=== PATIENT | female | born 1940 | race Caucasian/White ===

== ENCOUNTER 2018-06-30 20:30 | Inpatient (IN) ==
[2018-06-30] MEDS ORDERED: ASPIRIN PO ONE (20:45)
[2018-06-30 21:09] LABS: BASO# 0.03 X1000 (0.0-0.2); BASO% 0.2 % (0.0-0.8); EOS# 0.09 X1000 (0.0-0.7); EOS% 0.5 % (0.0-10.0); HEMATOCRIT 38.4 % (37.0-47.0); HEMOGLOBIN 12.9 g/dL (12.0-16.0); IMM GRAN# 0.04 X1000 (0.0-0.04); IMM GRAN% 0.2 % (0.0-0.5); LYMPH# 1.72 X1000 (1.2-3.4); LYMPH% 9.6 % (20.5-51.1); MCH 29.1 PG (27-31); MCHC 33.6 g/dL (33-37); MCV 86.7 FL (81-99); MONO% 7.2 % (1.7-9.3); MPV 8.1 FL (7.4-10.4); NEUT# 14.76 X1000 (1.4-6.5); NEUT% 82.3 % (42.2-75.2); PLT 409 X1000 (130-400); RBC 4.43 XMIL (4.2-5.4); WBC 17.94 X1000 (4.8-10.8)
[2018-06-30 21:19] LABS: INR 0.86; PROTIME 12.4 Seconds (11.0-16.0)
[2018-06-30 21:20] LABS: PTT 29.8 Seconds (22.3-41.8)
--- NOTE | 2018-06-30 21:24 | Diag Imaging Result Doc PS360 ---
EXAM: CHEST-2 VIEWS 06/30/2018 HISTORY: cp TECHNIQUE: PA and lateral chest COMMENT: There are rods in the thoracic and lumbar spine. There is some ill-defined opacity in the lingula. There are no previous studies available for comparison. IMPRESSION: Lingular pneumonia. Electronically signed by Adolfo Eagle 06/30/2018 9:22 PM
[2018-06-30 21:39] LABS: AGAP 12; ALB/GLOB RATIO 2.3; ALBUMIN 4.9 g/dL (3.5-5.0); ALKALINE PHOSPHATASE 145 U/L (32-104); BUN 20 mg/dL (8-22); CALCIUM 9.3 mg/dL (8.8-10.2); CHLORIDE 91 mmol/L (98-107); COSMO 270; CREATININE 0.8 mg/dL (0.5-0.9); ESTIMATED GFR > 60; GLUCOSE 143 mg/dL (70-104); GOT 37 U/L (10-30); GPT 41 U/L (10-36); POTASSIUM 3.3 mmol/L (3.5-5.1); SODIUM 132 mmol/L (136-145); TCO2 29 mmol/L (25-35); TOTAL BILIRUBIN 0.46 mg/dL (0.20-1.00)
[2018-06-30 21:42] LABS: CK PROFILE 440 U/L (24-173)
[2018-06-30 22:07] LABS: CK INDEX 1.4 (0.0-2.5); CK-MB 6.35 ng/mL (0.0-5.0)
--- NOTE | 2018-06-30 22:37 | PROVIDER DOCUMENTATION ---
This chart was entered by Clau Swanson Scribe, acting as scribe for Alan Peñaloza MD. HPI-General Adult - General Chief Complaint: Possible Sepsis-D Stated Complaint: PAIN IN NECK, BACK AND CHEST Time Seen by Provider: 06/30/18 21:24 Source: patient Allergies/Adverse Reactions: Patient Allergies Allergy/AdvReac Type Severity Reaction Status Date / Time No Known Allergies Allergy Verified 06/30/18 20:44 - History of Present Illness -Gen Adult Nature of Presenting Problems: Pt is 78/F presenting to ED w/ chest pain that goes through to back, neck pain and discomfort since 11:00. She was hallie her by her daughter. She sts that she has had some recent cough and runny nose as well. Location of Pain/Injury: reports: neck, chest, back Pain Radiation: reports: no radiation Quality of Pain: reports: aching Severity: reports: moderate Onset/Duration: reports: 4-6 hours ago Timing: reports: still present Context/Activities at Onset: reports: none Modifying Factors: improves with: nothing Associated Symptoms: reports: back/neck pain, chest pain. denies: fatigue, fever/chills, headaches, nausea, vomiting Similar Symptoms Previously?: No Recently seen or treated by another doctor?: No Review of Systems - Adult - REVIEW OF SYSTEMS - ADULT Constitutional: denies: chills, fever Eyes: reports: no symptoms reported Ears, Nose, Mouth & Throat: reports: no symptoms reported Cardiovascular: reports: chest pain. denies: edema Respiratory: reports: cough. denies: shortness of breath, wheezing Gastrointestinal: reports: no symptoms reported. denies: abdominal pain, diarrhea, vomiting Genitourinary: reports: no symptoms reported Musculoskeletal: reports: back pain Integumentary: reports: no symptoms reported Neurological: reports: no symptoms reported. denies: dizziness/vertigo, headache/migraines Psychiatric: reports: no symptoms reported Endocrine: reports: no symptoms reported Hematologic/Lymphatic: reports: no symptoms reported Allergic/Immunologic: reports: no symptoms reported All Other Systems: Reviewed and Negative Past History - Adult - PAST MEDICAL HISTORY-ADULT Review of Records: reports: Old Records Reviewed, Nursing Assessment Review, Medications Reviewed, Social history reviewed & non-contributory. - SOCIAL HISTORY Smoking: denies, non-smoker Substance Use: none/never Alcohol Use Frequency: never Living Situation: family Physical Exam-General - PHYSICAL EXAM-ADULT Initial Vital Signs Reviewed: Yes - CONSTITUTIONAL General Appearance: appears well, alert, no apparent distress - EYES Eyes: PERRL/EOMI - HEAD, EARS, NOSE, MOUTH & THROAT HENMT: normocephalic/atraumatic, moist mucous membranes, normal ENT inspection, TMs normal, pharynx normal - NECK Neck: non-tender, full range of motion, supple, normal inspection - RESPIRATORY Respiratory: chest non-tender, lungs clear, normal breath sounds - CARDIOVASCULAR Cardiovascular: regular rate, rhythm, no edema - GASTROINTESTINAL (ABDOMEN) Abdominal Exam: normal bowel sounds, non tender, soft - LYMPHATIC Lymphatic: no adenopathy - MUSCULOSKELETAL Back Exam: normal inspection Extremity: normal range of motion, non-tender, normal gait - SKIN Integumentary: normal color, normal turgor, warm/dry - NEUROLOGIC Neurologic: grossly normal - PSYCHIATRIC Psych/Mental Status: normal mood/affect, normal thought content, normal thought process, oriented x 3 Progress - PLAN OF CARE/RESULTS Progress/Plan/Lab Results: Vital Signs - 8 hr 06/30/18 20:41 Temperature 99.3 F Pulse Rate 86 Respiratory Rate 16 Blood Pressure 144/70 O2 Sat by Pulse Oximetry 93 L Laboratory Results - last 24 hr 06/30/18 06/30/18 06/30/18 20:56 20:56 20:56 WBC 17.94 H RBC 4.43 Hgb 12.9 Hct 38.4 MCV 86.7 MCH 29.1 MCHC 33.6 RDW Std Deviation 12.0 Plt Count 409 H MPV 8.1 Immature Gran % (Auto) 0.2 Neut % (Auto) 82.3 H Lymph % (Auto) 9.6 L Thomas % (Auto) 7.2 Eos % (Auto) 0.5 Baso % (Auto) 0.2 Immature Gran # (Auto) 0.04 Neut # (Auto) 14.76 H Lymph # (Auto) 1.72 Thomas # (Auto) 1.30 H Eos # (Auto) 0.09 Baso # (Auto) 0.03 PT INR PTT (Actin FS) Sodium 132 L Potassium 3.3 L Chloride 91 L Carbon Dioxide 29 Anion Gap 12 BUN 20 Creatinine 0.8 Estimated GFR/1.73 m2 > 60 BUN/Creatinine Ratio 25 Glucose 143 H Calculated Osmolality 270 Calcium 9.3 Total Bilirubin 0.46 AST 37 H ALT 41 H Alkaline Phosphatase 145 H Creatine Kinase 440 H Troponin T Idl-H-Zqodoqininj Pept 167 Total Protein 7.0 Albumin 4.9 Globulin 2.1 Albumin/Globulin Ratio 2.3 06/30/18 06/30/18 20:56 20:56 WBC RBC Hgb Hct MCV MCH MCHC RDW Std Deviation Plt Count MPV Immature Gran % (Auto) Neut % (Auto) Lymph % (Auto) Thomas % (Auto) Eos % (Auto) Baso % (Auto) Immature Gran # (Auto) Neut # (Auto) Lymph # (Auto) Thomas # (Auto) Eos # (Auto) Baso # (Auto) PT 12.4 INR 0.86 PTT (Actin FS) 29.8 Sodium Potassium Chloride Carbon Dioxide Anion Gap BUN Creatinine Estimated GFR/1.73 m2 BUN/Creatinine Ratio Glucose Calculated Osmolality Calcium Total Bilirubin AST ALT Alkaline Phosphatase Creatine Kinase Troponin T < 0.010 Bva-R-Htblfijvual Pept Total Protein Albumin Globulin Albumin/Globulin Ratio Orders Category Date Time Status Cardiac Monitoring DIRECTED Care 06/30/18 20:45 Active Cardiac Monitoring DIRECTED Care 06/30/18 21:45 Active IV Insertion ORDERED Care 06/30/18 21:45 Active Notify MD of + Sepsis Screen NOW Care 06/30/18 21:45 Active Notify Physician As Ordered Care 06/30/18 21:45 Active Oxygen Therapy- ED Nursing DIRECTED Care 06/30/18 20:45 Active CHEST-2 VIEWS [RAD] Stat Exams 06/30/18 20:45 Completed BLOOD CULTURE [BLDCUL] Stat Lab 06/30/18 21:45 Uncollected CBC WITH DIFF [HEME] Stat Lab 06/30/18 21:45 Uncollected CBC WITH ELECTRONIC DIFF [HEME] Stat Lab 06/30/18 20:56 Completed CK PROFILE [SP CHEM] Stat Lab 06/30/18 20:56 Results COMPREHENSIVE METABOLIC PANEL [CHEM] Stat Lab 06/30/18 20:56 Results LACTATE, PLASMA [CHEM] Lab 06/30/18 21:45 Uncollected LACTATE, PLASMA [CHEM] Lab 07/01/18 00:45 Uncollected LACTATE, PLASMA [CHEM] Lab 07/01/18 03:45 Uncollected PRO B-NATRIURETIC PEPTIDE Stat Lab 06/30/18 20:56 Completed PROTIME WITH INR [COAG] Stat Lab 06/30/18 20:56 Completed PTT [COAG] Stat Lab 06/30/18 20:56 Completed TROPONIN T Stat Lab 06/30/18 20:56 Completed URINALYSIS W/POSS RFLX CULT [URINALYSIS] Stat Lab 06/30/18 21:45 Uncollected Aspirin Med 06/30/18 20:45 Discontinued 325 mg PO NOW ONE CP/SOB/Palp >45 yrs of Age Stat Oth 06/30/18 20:45 Ordered Oxygen Device Stat Oth 06/30/18 21:45 Active Pulse Oximetry Stat Oth 06/30/18 21:45 Active EKG [EKG] Stat Ther 06/30/18 20:45 Ordered Result Diagrams: 06/30/18 20:56 06/30/18 20:56 - EKG 1 Time of EKG reading by physician:: 20:52 EKG Read and Signed by:: Alan Peñaloza EKG Interpretation (*Must complete 3 of following elements*): Abnormal (Normal sinus rhythm with sinus arrhythmia, Left axis deviation, Abnormal ECG) Rate: 96 Rhythm: normal sinus rhythm [place]: left QRS: normal MD Interval: normal ST Wave: normal - XRAY 1 XRAY: Bilateral XRAY Study: Chest Impression: Abnormal (COMMENT: There are rods in the thoracic and lumbar spine. There is some ill-defined opacity in the lingula. There are no previous studies available for comparison. IMPRESSION: Lingular pneumonia. Electronically signed by Adolfo Eagle 06/30/2018 9:22 PM [id number]) - CONSULTS/PCP/HOSPITALIST Notification #1 *Consult/PCP/Hospitalist*: Dr. Lares Time Discussed: 22:11 Reason/Comments: Dr. Lares agrees to admit pt to hospital Consult Disposition: Admit Departure - Departure Date of Disposition Decision: 06/30/18 Time of Disposition Decision: 22:37 DIAGNOSIS: Pneumonia Disposition: ADMITTED INPATIENT 09 Certified Medical Emergency: Emergent Condition: Fair Referrals and Follow-Ups: Megan Zavala MD [Primary Care Provider] - - Critical Care Note This patient required my direct & personal management of CC.: No Attestation - Physician/ DIVYA Attestation Patient care was provided by Advanced Practice Provider:: No The physician spent face to face time with patient:: Yes Advanced Practice Provider documentation review:: Supervising physician onsite and consulted in the evaluation and care of this patient. The physician did have a face to face encounter with the patient. This chart was documented by the indicated scribe, (Clau Swanson, Scribe) and accurately reflects the services I performed and decisions made by me, Alan Peñaloza MD, as attested by the provider's signature.
[2018-06-30 22:48] LABS: URINE SOURCE CLEAN CATCH
[2018-06-30 22:52] LABS: BILIRUBIN URINE NEGATIVE (NEGATIVE); BLOOD URINE SMALL (NEGATIVE); COLOR YELLOW; GLUCOSE URINE NEGATIVE (NEGATIVE); KETONE URINE NEGATIVE (NEGATIVE); LEUKOCYTES URINE SMALL (NEGATIVE); NITRITE URINE NEGATIVE (NEGATIVE); PROTEIN URINE NEGATIVE (NEGATIVE); SP GRAVITY URINE 1.006; TURBIDITY URINE CLEAR (CLEAR); UROBILINOGEN URINE NORMAL (NORMAL)
[2018-06-30 22:53] LABS: UR EPITHELIAL CELLS <10 /HPF (<10); URINE BACTERIA NEGATIVE /HPF; URINE WBC <10 /HPF (<10)
[2018-06-30] MEDS ORDERED: ZOFRAN IV ONE (22:59)
[2018-06-30] MEDS ORDERED: DILAUDID IV ONE (22:59)
[2018-06-30] MEDS ORDERED: NORCO-7.5 PO PRN (23:11)
[2018-06-30] MEDS ORDERED: KLOR-CON PO ONE (23:11)
[2018-07-01] MEDS ORDERED: VENTOLIN HFA INH PRN (04:30)
[2018-07-01] MEDS: NS 1,000 ML IV SCH (05:15)
[2018-07-01 05:20] LABS: BASO# 0.03 X1000 (0.0-0.2); BASO% 0.2 % (0.0-0.8); EOS# 0.05 X1000 (0.0-0.7); EOS% 0.3 % (0.0-10.0); HEMATOCRIT 37.4 % (37.0-47.0); HEMOGLOBIN 12.2 g/dL (12.0-16.0); IMM GRAN# 0.06 X1000 (0.0-0.04); IMM GRAN% 0.3 % (0.0-0.5); LYMPH# 1.87 X1000 (1.2-3.4); LYMPH% 10.3 % (20.5-51.1); MCH 28.8 PG (27-31); MCHC 32.6 g/dL (33-37); MCV 88.4 FL (81-99); MONO# 1.72 X1000 (0.11-0.59); MONO% 9.5 % (1.7-9.3); MPV 8.1 FL (7.4-10.4); NEUT# 14.36 X1000 (1.4-6.5); NEUT% 79.4 % (42.2-75.2); PLT 387 X1000 (130-400); RBC 4.23 XMIL (4.2-5.4); RDW 12.1 % (11.5-14.5); WBC 18.09 X1000 (4.8-10.8)
[2018-07-01] MEDS: ROCEPHIN 1 GM in NS 50 ML IV SCH (05:21)
[2018-07-01] MEDS: LOVENOX SUBQ SCH (05:21)
[2018-07-01 05:33] LABS: HEMOGLOBIN A1C 6.1 % (4.8-6.0)
[2018-07-01] MEDS ORDERED: DOXYCYCLINE 100 MG in NS 250 ML IV SCH (06:00)
[2018-07-01] MEDS: SYNTHROID PO SCH (06:17)
[2018-07-01] MEDS ORDERED: NORCO-7.5 PO PRN (06:18)
[2018-07-01 06:21] LABS: CREATININE 0.9 mg/dL (0.5-0.9); POTASSIUM 3.9 mmol/L (3.5-5.1)
[2018-07-01 06:37] LABS: CK INDEX 1.2 (0.0-2.5); CK-MB 4.71 ng/mL (0.0-5.0)
--- NOTE | 2018-07-01 06:57 | HISTORY AND PHYSICAL ---
CHIEF COMPLAINT: Pain in neck, back and chest. HISTORY OF PRESENT ILLNESS: This is an 78-year-old female who comes in with her daughter stating that she had a cough and runny nose after the past couple of days. She had onset of pain in her chest that radiated through to her back and into her neck since around 11 this afternoon. Nothing made it better, nothing made it worse. She complained of it being an aching or pressure. The patient does have a known history of COPD, hypertension, hypothyroidism, diabetes mellitus type 2 and GERD. In the emergency room, CKs were mildly elevated, troponins were within normal limit range. A chest x-ray was obtained which showed a lingular pneumonia. The patient also had an elevated white blood cell count at 17.94. She will be admitted to the medical floor for further evaluation and treatment. PAST MEDICAL HISTORY: 1. Hypertension. 2. Hyperlipidemia. 3. Chronic pain syndrome. 4. COPD. 5. Hypothyroidism. 6. Diabetes mellitus type 2. PREVIOUS SURGICAL HISTORY: 1. Two spinal fusions. 2. Right rotator cuff repair. 3. Kidney stone removal. 4. Bilateral cataract surgery. SOCIAL HISTORY: No tobacco, alcohol or illicit drugs. FAMILY HISTORY: Positive for diabetes and coronary artery disease as well as hypertension in first degree relatives. ALLERGIES: No known drug allergies. HOME MEDICATIONS: 1. Ultram 50 mg p.o. t.i.d. 2. Albuterol 2 puff inhalation q.4. 3. Aspirin 325 p.o. daily. 4. Baclofen 30 mg p.o. t.i.d. 5. Chlorthalidone 50 mg p.o. daily. 6. Duloxetine 60 mg p.o. daily. 7. Nexium 40 mg p.o. daily. 8. Ezetimibe 10 mg p.o. at bedtime. 9. Advair 500/50 one puff b.i.d. 10.Hydroxyzine 1 tablet p.o. t.i.d. 25 mg for itch. 11.Synthroid 25 mcg p.o. daily. 12.Metformin 1000 mg b.i.d. 13.Mirabegron 50 mg p.o. at bedtime. 14.Oxazepam 20 mg p.o. b.i.d. 15.Ropinirole 1 mg p.o. at bedtime. 16.Rosuvastatin 20 mg p.o. at bedtime. REVIEW OF SYSTEMS: Fourteen point review of systems conducted with the patient and pertinent positives listed above in the HPI. All other systems reviewed and found to be negative. PHYSICAL EXAMINATION: VITAL SIGNS: Temperature 99.3 degrees, pulse 98, respirations 18, blood pressure 139/77, oxygen saturation 94% on room air. GENERAL: 78-year-old female lying in the stretcher, answers all questions appropriately, is alert and oriented x3 and in no acute distress. HEENT: Head is atraumatic, normocephalic. Pupils are equal, round and reactive to light. Extraocular eye movements intact. Sclerae nonicteric. Conjunctivae pale. Oral mucosa is dry. NECK: Supple. No JVD. No thyromegaly. Trachea is midline. No cervical lymphadenopathy. CARDIAC: S1, S2 appreciated. No murmurs, gallops, rubs. LUNGS: Decreased bilaterally. No rhonchi, wheezes, rales. Symmetrical rise and fall of respirations. ABDOMEN: Soft, nondistended, nontender. Bowel sounds present in all 4 quadrants. Normoactive. No pulsatile mass or organomegaly. EXTREMITIES: No cyanosis, clubbing or edema. 2+ pedal pulses bilaterally. GENITOURINARY: No bladder distention. Patient voids otherwise. NEUROLOGICAL: Alert and oriented x3. Cranial nerves 2-12 grossly intact. DIAGNOSTIC DATA: Chest x-ray showed a lingular pneumonia. LABORATORY DATA: WBC 17.94, hemoglobin 12.9, hematocrit 38.4, platelet count 409,000. Coags within normal limits. Sodium 132, potassium 3.3, chloride 91, carbon dioxide 29 , BUN 20, creatinine 0.8, glucose 143. CK was 440, troponin less than 0.010. Urine unremarkable. ASSESSMENT AND PLAN: 1. Lingular pneumonia. We will treat with IV doxycycline and Rocephin. Check a sputum culture and blood cultures. Patient is having a fairly significant cough. We will give Tessalon Perles. We will start [address] as needed for pain which is also an antitussive. 2. Hyperlipidemia. Continue home medication. 3. Diabetes mellitus type 2 with hyperglycemia. Continue metformin. Check a hemoglobin A1c. 4. Hypokalemia. We will treat with 40 mEq of potassium, recheck in a.m. 5. Mild fluid volume depletion. We will start normal saline. Continue to monitor labs. Further recommendations per patient's clinical course. Dictated by EAMON Mason for Will Lares MD I have performed a face to face diagnostic evaluation. Lab/ Xrays - reviewed, Exam- Chest- rhonchi A/P- Pneumonia- Admit, IV ABX Dr. Lares cc: EAMON Mason MD [facility] [place] [facility]
[2018-07-01] MEDS: SERAX PO SCH ×2 (08:24→20:20)
[2018-07-01] MEDS: HYGROTON PO SCH (08:24)
[2018-07-01] MEDS: GLUCOPHAGE PO SCH ×2 (08:24→17:44)
[2018-07-01] MEDS: ASPIRIN PO SCH (08:25)
[2018-07-01] MEDS: CYMBALTA PO SCH (08:26)
[2018-07-01] MEDS ORDERED: GLUCOPHAGE PO SCH (09:00)
[2018-07-01] MEDS ORDERED: MIRABEGRON 50 MG PO SCH (09:00)
[2018-07-01] MEDS ORDERED: LIORESAL PO SCH (09:00)
[2018-07-01] MEDS ORDERED: NEXIUM PO SCH (09:00)
[2018-07-01] MEDS ORDERED: SYNTHROID PO SCH (09:00)
[2018-07-01] MEDS ORDERED: ZETIA PO SCH (09:00)
[2018-07-01] MEDS ORDERED: SERAX PO SCH (09:00)
[2018-07-01] MEDS ORDERED: CYMBALTA PO SCH (09:00)
[2018-07-01] MEDS ORDERED: CHLORTHALIDONE 50 MG PO SCH (09:00)
[2018-07-01] MEDS ORDERED: CRESTOR PO SCH (09:00)
[2018-07-01] MEDS ORDERED: ASPIRIN PO SCH (09:00)
[2018-07-01] MEDS: ADVAIR 500/50 DISKUS INH SCH ×2 (09:30→20:00)
[2018-07-01] MEDS ORDERED: DUONEB (A & A) INH PRN (10:55)
[2018-07-01] MEDS: DUONEB (A & A) INH SCH ×4 (11:59→23:15)
[2018-07-01] MEDS: NORCO-7.5 PO PRN ×3 (13:53→21:30)
[2018-07-01] MEDS: LEVAQUIN 750 MG/D5W 750 MG/150 ML IVPB IV SCH (14:45)
[2018-07-01 14:51] LABS: CK INDEX 1.6 (0.0-2.5); CK-MB 4.59 ng/mL (0.0-5.0)
[2018-07-01] MEDS: LIORESAL PO SCH ×3 (15:27→17:44)
[2018-07-01] MEDS: CRESTOR PO SCH (20:19)
[2018-07-01] MEDS: NEXIUM PO SCH (20:19)
[2018-07-01] MEDS: MYRBETRIQ E.R. PO SCH (20:20)
[2018-07-01] MEDS: ZETIA PO SCH (20:20)
[2018-07-01] MEDS: REQUIP PO SCH (20:20)
[2018-07-01 21:01] LABS: CK-MB 5.41 ng/mL (0.0-5.0)
--- NOTE | 2018-07-01 21:27 | Diag Imaging Result Doc PS360 ---
EXAM: CT THORAX W/O CONTRAST 07/01/2018 HISTORY: pna TECHNIQUE: This exam was performed using automated exposure control, adjustment of mA or kV according to patient size, and/or use of iterative reconstruction technique. COMMENT: There is some platelike atelectatic opacities in the right lower lobe. There is denser consolidation in the lingula and left lower lobe posteriorly. There is a pericardial effusion which measures a centimeter anteriorly. There is a small left pleural effusion. There are nonspecific aorticopulmonary window and paratracheal nodes. There is a hiatal hernia. There are postsurgical changes in the thoracic spine. IMPRESSION: Lingular and left lower lobe pneumonia. Electronically signed by Adolfo Eagle 07/01/2018 9:25 PM
[2018-07-01] MEDS: ATARAX PO PRN (21:30)
[2018-07-02] MEDS: NORCO-7.5 PO PRN ×3 (01:43→09:24)
[2018-07-02] MEDS: DUONEB (A & A) INH SCH ×6 (04:02→23:45)
[2018-07-02] MEDS: SYNTHROID PO SCH ×2 (05:31→06:17)
[2018-07-02] MEDS: LOVENOX SUBQ SCH (05:31)
[2018-07-02] MEDS: ROCEPHIN 1 GM in NS 50 ML IV SCH (05:31)
[2018-07-02] MEDS: ADVAIR 500/50 DISKUS INH SCH ×2 (07:53→19:40)
[2018-07-02] MEDS: GLUCOPHAGE PO SCH ×2 (09:23→18:10)
[2018-07-02] MEDS: CYMBALTA PO SCH (09:23)
[2018-07-02] MEDS: LIORESAL PO SCH ×3 (09:23→17:00)
[2018-07-02] MEDS: SERAX PO SCH ×2 (09:23→21:04)
[2018-07-02] MEDS: ASPIRIN PO SCH (09:23)
[2018-07-02] MEDS: HYGROTON PO SCH (09:24)
[2018-07-02] MEDS: LEVAQUIN 750 MG/D5W 750 MG/150 ML IVPB IV SCH (10:59)
[2018-07-02] MEDS: NS 1,000 ML IV SCH (10:59)
--- NOTE | 2018-07-02 12:45 | PROGRESS NOTE ---
DATE: 07/02/2018 SUBJECTIVE: The patient reports continuing to have left pleuritic chest pain and cough. She requests pain medication dose to be increased today. OBJECTIVE: Vital Signs: Temperature 97.9 degrees, heart rate 81, respiratory rate 16, blood pressure 119/52, O2 saturation 97% on 2 L nasal cannula. General examination: This is an 78- year-old female lying in bed, in no acute distress. HEENT: Head is normocephalic, atraumatic. Neck: No JVD noted. No carotid bruits. No lymphadenopathy. No thyromegaly. Cardiovascular: S1, S2 heard. No murmurs, gallops, or rubs. Regular rate and rhythm. Respiratory: Coarse breath sounds in both pulmonary bases as well as wheezing. Patient is not using any accessory muscles or having work of breathing. Abdomen: Soft. Nontender to palpation. Bowel sounds present. No organomegaly. Extremities: No clubbing, cyanosis, or edema. Peripheral pulses present in both legs. Neurological: The patient is alert and oriented x3. Moves 4 extremities. LABORATORY DATA: White cell count 18.09, hemoglobin 12.2, hematocrit 37.4, platelets 387,000. BMP remarkable for creatinine 0.9, sodium 132. The CT of the chest shows lingular and left lower lobe pneumonia. There is also postsurgical changes in the thoracic spine. ASSESSMENT AND PLAN: 1. Acute respiratory failure. Patient is requiring 2 to 3 L of oxygen by nasal cannula. We will continue with the same management. 2. Left lower lobe on the lingular pneumonia. Patient is on ceftriaxone and levofloxacin. She continues to have pretty much cough and requiring oxygen supplementation, so we will continue with albuterol and Atrovent every 4 hours. White cell count is still elevated. If white cell count is still elevated tomorrow we may need to switch antibiotics. 3. Diabetes mellitus type 2. We will continue with sliding scale insulin and Accu-Cheks before meals and also at bedtime. 4. Hypokalemia, resolved. 5. Hyperlipidemia. We will continue home medications. 6. Disposition. We will continue to monitor this patient closely. cc: Kofi Jeff MD
[2018-07-02] MEDS: NORCO-10 PO PRN ×3 (13:26→21:05)
[2018-07-02] MEDS: MUCOMYST 20% INH SCH ×2 (15:42→19:40)
[2018-07-02] MEDS: MYRBETRIQ E.R. PO SCH (21:04)
[2018-07-02] MEDS: CRESTOR PO SCH (21:04)
[2018-07-02] MEDS: NEXIUM PO SCH (21:04)
[2018-07-02] MEDS: REQUIP PO SCH (21:04)
[2018-07-02] MEDS: ZETIA PO SCH (21:04)
[2018-07-02] MEDS: TESSALON PO PRN (21:09)
[2018-07-03] MEDS: NORCO-10 PO PRN ×5 (02:00→18:17)
[2018-07-03] MEDS: TYLENOL PO PRN (02:09)
[2018-07-03] MEDS: NS 1,000 ML IV SCH ×2 (02:10→20:21)
[2018-07-03] MEDS: DUONEB (A & A) INH SCH ×6 (03:20→23:50)
[2018-07-03] MEDS: SYNTHROID PO SCH (06:35)
[2018-07-03] MEDS: ROCEPHIN 1 GM in NS 50 ML IV SCH (06:36)
[2018-07-03] MEDS: LOVENOX SUBQ SCH (06:36)
[2018-07-03] MEDS: ADVAIR 500/50 DISKUS INH SCH ×2 (07:45→19:30)
[2018-07-03] MEDS: MUCOMYST 20% INH SCH ×2 (07:45→19:30)
[2018-07-03 07:53] LABS: BASO# 0.02 X1000 (0.0-0.2); BASO% 0.1 % (0.0-0.8); EOS# 0.19 X1000 (0.0-0.7); EOS% 1.3 % (0.0-10.0); HEMOGLOBIN 10.8 g/dL (12.0-16.0); IMM GRAN# 0.04 X1000 (0.0-0.04); IMM GRAN% 0.3 % (0.0-0.5); LYMPH# 1.45 X1000 (1.2-3.4); LYMPH% 10.2 % (20.5-51.1); MCH 28.8 PG (27-31); MCHC 31.8 g/dL (33-37); MCV 90.7 FL (81-99); MONO# 1.13 X1000 (0.11-0.59); MPV 8.7 FL (7.4-10.4); NEUT# 11.35 X1000 (1.4-6.5); NEUT% 80.1 % (42.2-75.2); PLT 380 X1000 (130-400); RBC 3.75 XMIL (4.2-5.4); RDW 12.4 % (11.5-14.5); WBC 14.18 X1000 (4.8-10.8)
[2018-07-03 08:20] LABS: AGAP 14; BUN 9 mg/dL (8-22); CALCIUM 8.8 mg/dL (8.8-10.2); CHLORIDE 94 mmol/L (98-107); COSMO 272; CREATININE 0.7 mg/dL (0.5-0.9); ESTIMATED GFR > 60; GLUCOSE 150 mg/dL (70-104); POTASSIUM 2.9 mmol/L (3.5-5.1); SODIUM 135 mmol/L (136-145); TCO2 27 mmol/L (25-35)
--- NOTE | 2018-07-03 08:54 | EKG Report ---
Test Performed on : 06/30/2018 8:52:17 PM Test Reason : cp Blood Pressure : / mmHG Vent. Rate : 096 BPM Atrial Rate : 096 BPM P-R Int : 124 ms QRS Dur : 092 ms QT Int : 352 ms P-R-T Axes : 020 -30 082 degrees QTc Int : 444 ms Normal sinus rhythm. with sinus arrhythmia. Left axis deviation Abnormal ECG No previous ECGs available Unconfirmed Result
[2018-07-03] MEDS: GLUCOPHAGE PO SCH ×2 (09:11→16:48)
[2018-07-03] MEDS: CYMBALTA PO SCH (09:12)
[2018-07-03] MEDS: LIORESAL PO SCH ×3 (09:12→16:48)
[2018-07-03] MEDS: ATARAX PO PRN (09:12)
[2018-07-03] MEDS: ASPIRIN PO SCH (09:12)
[2018-07-03] MEDS: HYGROTON PO SCH (09:12)
[2018-07-03] MEDS: SERAX PO SCH ×2 (10:38→20:15)
[2018-07-03] MEDS: LEVAQUIN 750 MG/D5W 750 MG/150 ML IVPB IV SCH (10:49)
[2018-07-03] MEDS: POTASSIUM CHLORIDE 60 MEQ in NS 500 ML IV SCH ×2 (11:38→18:17)
--- NOTE | 2018-07-03 13:31 | PROGRESS NOTE ---
DATE: 07/03/2018 SUBJECTIVE: Patient reports that the left pleuritic chest pain is getting better. Still with cough but better in comparing with yesterday. She reports feeling more comfortable today. OBJECTIVE: Vital Signs: Temperature 97.8 degrees, heart rate 87, respiratory rate 17, blood pressure 121/63, O2 saturation 98% on 2 L nasal cannula. General examination: This is an 78- year-old female lying in bed, in no acute distress. HEENT: Head is normocephalic, atraumatic. Neck: No JVD noted. No carotid bruits. No lymphadenopathy. No thyromegaly. Cardiovascular: S1, S2 heard. No murmurs, gallops, or rubs. Regular rate and rhythm. Respiratory: Coarse breath sounds still present in both pulmonary bases. Minimal wheezing noted. Patient is not using any accessory muscles or having work of breathing. Abdomen: Soft. Nontender to palpation. Bowel sounds present. No organomegaly. Skin: There is an erythematous rash underneath the skin fold of the left breast. Neurological: Patient is alert and oriented x3. Moves 4 extremities. LABORATORY DATA: White cell count 14.1, hemoglobin 10.8, hematocrit 34.0, platelets 380,000. BMP shows potassium 2.9, sodium 135. ASSESSMENT AND PLAN: 1. Acute respiratory failure. The patient clinically is feeling better. Requiring 2-3 L of oxygen by nasal cannula. We will continue with the same management. 2. Left lower lobe and lingular pneumonia. Patient continues to be on ceftriaxone and levofloxacin. Clinically feeling less short of breath. At this time we will continue with the same medications. White cell count is still elevated. We will continue checking CBC daily. 3. Diabetes mellitus type 2. We will continue with sliding scale insulin and Accu-Cheks before meals and also at bedtime. 4. Hypokalemia. Potassium is 2.9 today. We will provide potassium IV and check BMP tomorrow. 5. Hyperlipidemia. We will continue home medications. 6. Disposition. We will continue to monitor this patient closely. cc: Kofi Jeff MD
[2018-07-03] MEDS: LOTRIMIN 1% CREAM TOP SCH ×2 (14:35→20:21)
[2018-07-03] MEDS: CRESTOR PO SCH (20:15)
[2018-07-03] MEDS: MYRBETRIQ E.R. PO SCH (20:15)
[2018-07-03] MEDS: ZETIA PO SCH (20:15)
[2018-07-03] MEDS: REQUIP PO SCH (20:16)
[2018-07-03] MEDS: NEXIUM PO SCH (20:16)
[2018-07-04] MEDS: DUONEB (A & A) INH SCH ×6 (03:15→23:15)
[2018-07-04] MEDS: ROCEPHIN 1 GM in NS 50 ML IV SCH (04:17)
[2018-07-04] MEDS: LOVENOX SUBQ SCH (04:17)
[2018-07-04] MEDS: NS 1,000 ML IV SCH ×2 (04:18→17:52)
[2018-07-04] MEDS: SYNTHROID PO SCH (06:20)
[2018-07-04] MEDS: MUCOMYST 20% INH SCH ×2 (07:40→19:20)
[2018-07-04] MEDS: ADVAIR 500/50 DISKUS INH SCH ×2 (07:40→19:25)
[2018-07-04 07:57] LABS: BASO# 0.02 X1000 (0.0-0.2); BASO% 0.2 % (0.0-0.8); EOS# 0.23 X1000 (0.0-0.7); EOS% 1.9 % (0.0-10.0); HEMATOCRIT 32.4 % (37.0-47.0); HEMOGLOBIN 10.2 g/dL (12.0-16.0); IMM GRAN# 0.04 X1000 (0.0-0.04); IMM GRAN% 0.3 % (0.0-0.5); LYMPH# 0.87 X1000 (1.2-3.4); LYMPH% 7.2 % (20.5-51.1); MCHC 31.5 g/dL (33-37); MONO# 1.02 X1000 (0.11-0.59); MONO% 8.5 % (1.7-9.3); MPV 8.5 FL (7.4-10.4); NEUT# 9.85 X1000 (1.4-6.5); NEUT% 81.9 % (42.2-75.2); PLT 398 X1000 (130-400); RBC 3.52 XMIL (4.2-5.4); RDW 12.4 % (11.5-14.5); WBC 12.03 X1000 (4.8-10.8)
[2018-07-04 08:15] LABS: AGAP 14; BUN 10 mg/dL (8-22); CHLORIDE 98 mmol/L (98-107); COSMO 279; CREATININE 0.7 mg/dL (0.5-0.9); ESTIMATED GFR > 60; GLUCOSE 139 mg/dL (70-104); POTASSIUM 3.5 mmol/L (3.5-5.1); SODIUM 139 mmol/L (136-145); TCO2 27 mmol/L (25-35)
--- NOTE | 2018-07-04 08:54 | Diag Imaging Result Doc PS360 ---
EXAM: CHEST-2 VIEWS 07/04/2018 HISTORY: pna TECHNIQUE: PA and lateral chest COMMENT: There is alveolar opacity in the left lower lobe which is worse than on the previous study of 06/30/2018. There is also opacification in the lingula. Otherwise there has been no significant change since 06/30/2018. IMPRESSION: Worsened lingular and left lower lobe pneumonia. Electronically signed by Adolfo Eagle 07/04/2018 8:50 AM
[2018-07-04] MEDS: GLUCOPHAGE PO SCH ×2 (09:34→17:41)
[2018-07-04] MEDS: HYGROTON PO SCH (09:38)
[2018-07-04] MEDS: ASPIRIN PO SCH (09:38)
[2018-07-04] MEDS: NORCO-10 PO PRN ×2 (09:38→13:03)
[2018-07-04] MEDS: LIORESAL PO SCH ×3 (09:38→17:41)
[2018-07-04] MEDS: CYMBALTA PO SCH (09:38)
[2018-07-04] MEDS: LOTRIMIN 1% CREAM TOP SCH ×2 (10:07→20:28)
[2018-07-04] MEDS: TESSALON PO PRN (10:07)
[2018-07-04] MEDS: SERAX PO SCH ×2 (10:07→20:27)
[2018-07-04] MEDS: TUSSIONEX LIQUID PO SCH ×2 (10:20→20:28)
--- NOTE | 2018-07-04 10:50 | PROGRESS NOTE ---
DATE: 07/04/2018 SUBJECTIVE: The patient reports that the chest pain is getting better. She had some cough, but she reports coughing less in compared with yesterday. OBJECTIVE: Vital Signs: Temperature 99.3 degrees, heart rate 109, respiratory rate 20, blood pressure 134/62. O2 saturation 99% on 2 L nasal cannula. General: This is a chronically ill- looking 78-year-old female lying in bed in no acute distress. HEENT: Head is normocephalic, atraumatic. Neck: No JVD noted. No carotid bruits. No lymphadenopathy. No thyromegaly. Cardiovascular: S1, S2 heard. No murmurs, gallops, or rubs. Regular rate and rhythm. Respiratory: Coarse breath sounds still noted in both pulmonary bases. The patient also has some wheezing, but patient is not using any accessory muscles or having work of breathing. Abdomen: Soft, nontender to palpation. Bowel sounds present. No organomegaly. Extremities: No clubbing, cyanosis, or edema. Peripheral pulses present in both legs. There is a minimal erythema or rash underneath the skin for the left breast. Neurological: Patient alert and oriented x3. Moves all 4 extremities. LABORATORY DATA: White cell count 12.03. Hemoglobin 10.2, hematocrit 32.4 and platelets 398,000. BMP normal. ASSESSMENT AND PLAN: 1. Acute respiratory failure. Patient required 2 L of oxygen by nasal cannula. She is breathing better. We will continue with the same management. 2. Left lower lobe and lingular pneumonia. Patient is on levofloxacin and ceftriaxone day #3 for both medications. Clinically, he is feeling better. We will continue with the same medications. 3. Diabetes mellitus type 2. We will continue with sliding scale insulin. Accu-Chek before meals and also at bedtime. 4. Hypokalemia, resolved. 5. Hyperlipidemia with home medications. 6. Disposition. We will continue to monitor this patient closely. cc: Kofi Jeff MD
[2018-07-04] MEDS: LEVAQUIN 750 MG/D5W 750 MG/150 ML IVPB IV SCH (13:03)
[2018-07-04] MEDS: NEXIUM PO SCH (20:27)
[2018-07-04] MEDS: CRESTOR PO SCH (20:27)
[2018-07-04] MEDS: MYRBETRIQ E.R. PO SCH (20:27)
[2018-07-04] MEDS: REQUIP PO SCH (20:28)
[2018-07-04] MEDS: ZETIA PO SCH (20:28)
[2018-07-05] MEDS: NS 1,000 ML IV SCH ×2 (00:40→04:00)
[2018-07-05] MEDS: DUONEB (A & A) INH SCH ×6 (03:15→23:15)
[2018-07-05] MEDS: ROCEPHIN 1 GM in NS 50 ML IV SCH (03:51)
[2018-07-05] MEDS: LOVENOX SUBQ SCH (03:51)
[2018-07-05] MEDS: SYNTHROID PO SCH (06:04)
[2018-07-05 07:27] LABS: BASO# 0.02 X1000 (0.0-0.2); BASO% 0.2 % (0.0-0.8); EOS% 2.4 % (0.0-10.0); HEMATOCRIT 35.5 % (37.0-47.0); IMM GRAN# 0.04 X1000 (0.0-0.04); IMM GRAN% 0.3 % (0.0-0.5); LYMPH% 12.1 % (20.5-51.1); MCH 28.5 PG (27-31); MONO# 1.21 X1000 (0.11-0.59); MONO% 9.7 % (1.7-9.3); MPV 8.1 FL (7.4-10.4); NEUT# 9.37 X1000 (1.4-6.5); NEUT% 75.3 % (42.2-75.2); PLT 477 X1000 (130-400); RBC 3.86 XMIL (4.2-5.4); RDW 12.5 % (11.5-14.5); WBC 12.44 X1000 (4.8-10.8)
[2018-07-05] MEDS: MUCOMYST 20% INH SCH ×2 (07:38→19:29)
[2018-07-05] MEDS: ADVAIR 500/50 DISKUS INH SCH ×2 (07:39→19:29)
[2018-07-05 07:51] LABS: AGAP 14; BUN 7 mg/dL (8-22); CALCIUM 9.3 mg/dL (8.8-10.2); CHLORIDE 95 mmol/L (98-107); COSMO 278; CREATININE 0.7 mg/dL (0.5-0.9); ESTIMATED GFR > 60; GLUCOSE 136 mg/dL (70-104); POTASSIUM 3.2 mmol/L (3.5-5.1); SODIUM 139 mmol/L (136-145); TCO2 30 mmol/L (25-35)
[2018-07-05] MEDS: LOTRIMIN 1% CREAM TOP SCH (09:48)
[2018-07-05] MEDS: SERAX PO SCH ×2 (09:48→21:30)
[2018-07-05] MEDS: GLUCOPHAGE PO SCH ×2 (09:48→16:57)
[2018-07-05] MEDS: TUSSIONEX LIQUID PO SCH (09:48)
[2018-07-05] MEDS: LIORESAL PO SCH ×3 (09:49→16:57)
[2018-07-05] MEDS: TESSALON PO PRN (09:49)
[2018-07-05] MEDS: CYMBALTA PO SCH (09:49)
[2018-07-05] MEDS: NORCO-10 PO PRN ×2 (09:49→22:34)
[2018-07-05] MEDS: ASPIRIN PO SCH (09:49)
[2018-07-05] MEDS: HYGROTON PO SCH (09:50)
[2018-07-05] MEDS ORDERED: KLOR-CON PO ONE (13:41)
--- NOTE | 2018-07-05 14:53 | PROGRESS NOTE ---
DATE: 07/05/2018 SUBJECTIVE: The patient reports that she is coughing less. The daughter confirmed that she is usually coughing. She is not able to bring out anything. No other complaints noted. She started working with physical therapy today. OBJECTIVE: Vital Signs: Temperature 99.7 degrees, heart rate 90, respiratory rate 18, blood pressure 121/63, O2 saturation 98% on 2 L nasal cannula. General: This is an 78-year-old, chronically ill-looking, female lying in bed, in no acute distress. HEENT: Head is normocephalic and atraumatic. Neck: No jugular venous distention. No carotid bruits. No lymphadenopathy. No thyromegaly. Cardiovascular: S1 and S2 heard. No murmurs, gallops, or rubs. Regular rate and rhythm. Respiratory: Coarse breath sounds still present in both pulmonary bases. The patient is also having minimal wheezing. The patient is not using any accessory muscles or having work of breathing. Abdomen: Soft. Nontender to palpation. Bowel sounds present. No organomegaly. Extremities: No clubbing, cyanosis, or edema. Peripheral pulses present in both legs. Skin: There is a minimal erythema rash underneath the skin of the left breast. Neurological: Patient alert and oriented x3. Moves 4 extremities. LABORATORY DATA: White cell count 12.44, hemoglobin 11.0, hematocrit 35.5, platelets 477,000. Creatinine 0.7, potassium 3.2. ASSESSMENT AND PLAN: 1. Acute respiratory failure secondary to left lower lobe and lingular pneumonia. The patient continues to require 2 L of oxygen by nasal cannula. Although clinically this patient reports feeling okay, her white cell count is still mildly elevated and she continues to cough, according to her less in comparing with previous days. Considering her history of chronic obstructive pulmonary disease, first I prefer to change antibiotics to Zosyn 3.375 g intravenously every 6 hours and stop Levaquin and ceftriaxone. Will continue with DuoNeb every 4 hours as scheduled. Will continue with Mucomyst twice daily scheduled and will go from there. 2. Diabetes mellitus type 2. Will continue with sliding scale insulin and Accu-Cheks before meals and also at bedtime. 3. Hypokalemia. Will replete potassium today. 4. Hyperlipidemia. Will continue with home medications. DISPOSITION: I think this patient will need to stay in the hospital for at least 48 hours. Patient working with physical therapy. Will see if the patient will need home health at home. cc: Kofi Jeff MD
[2018-07-05] MEDS: ZOSYN 3.375 GM in NS 50 ML IV SCH ×2 (16:56→22:28)
[2018-07-05] MEDS: LEVAQUIN 750 MG/D5W 750 MG/150 ML IVPB IV SCH (17:09)
[2018-07-05] MEDS: CRESTOR PO SCH (22:24)
[2018-07-05] MEDS: NEXIUM PO SCH (22:25)
[2018-07-05] MEDS: REQUIP PO SCH (22:25)
[2018-07-05] MEDS: ZETIA PO SCH (22:25)
[2018-07-05] MEDS: MYRBETRIQ E.R. PO SCH (22:25)
[2018-07-05] MEDS: MILK OF MAGNESIA PO SCH (22:25)
[2018-07-06] MEDS: LOTRIMIN 1% CREAM TOP SCH ×3 (00:01→21:18)
[2018-07-06] MEDS: TUSSIONEX LIQUID PO SCH ×3 (00:04→21:19)
[2018-07-06] MEDS: DUONEB (A & A) INH SCH ×6 (03:10→22:50)
[2018-07-06] MEDS: ZOSYN 3.375 GM in NS 50 ML IV SCH ×5 (05:09→22:27)
[2018-07-06] MEDS: LOVENOX SUBQ SCH (05:10)
[2018-07-06] MEDS: SYNTHROID PO SCH ×2 (05:10→06:38)
[2018-07-06] MEDS: TESSALON PO PRN (06:16)
[2018-07-06 07:39] LABS: BASO# 0.03 X1000 (0.0-0.2); BASO% 0.3 % (0.0-0.8); EOS# 0.23 X1000 (0.0-0.7); EOS% 2.3 % (0.0-10.0); HEMATOCRIT 32.2 % (37.0-47.0); HEMOGLOBIN 10.1 g/dL (12.0-16.0); IMM GRAN# 0.09 X1000 (0.0-0.04); IMM GRAN% 0.9 % (0.0-0.5); LYMPH% 15.2 % (20.5-51.1); MCH 28.7 PG (27-31); MCHC 31.4 g/dL (33-37); MCV 91.5 FL (81-99); MONO# 1.12 X1000 (0.11-0.59); MONO% 11.3 % (1.7-9.3); MPV 8.1 FL (7.4-10.4); NEUT# 6.91 X1000 (1.4-6.5); PLT 453 X1000 (130-400); RBC 3.52 XMIL (4.2-5.4); RDW 12.5 % (11.5-14.5); WBC 9.88 X1000 (4.8-10.8)
[2018-07-06] MEDS: MUCOMYST 20% INH SCH ×2 (07:41→19:30)
[2018-07-06] MEDS: ADVAIR 500/50 DISKUS INH SCH ×2 (07:41→19:30)
[2018-07-06 07:45] LABS: AGAP 13; BUN 8 mg/dL (8-22); CALCIUM 8.9 mg/dL (8.8-10.2); CHLORIDE 96 mmol/L (98-107); COSMO 278; CREATININE 0.6 mg/dL (0.5-0.9); ESTIMATED GFR > 60; GLUCOSE 138 mg/dL (70-104); POTASSIUM 3.6 mmol/L (3.5-5.1); SODIUM 139 mmol/L (136-145); TCO2 30 mmol/L (25-35)
[2018-07-06] MEDS: HYGROTON PO SCH (08:34)
[2018-07-06] MEDS: NORCO-10 PO PRN (08:34)
[2018-07-06] MEDS: LIORESAL PO SCH ×3 (08:34→16:44)
[2018-07-06] MEDS: CYMBALTA PO SCH (08:34)
[2018-07-06] MEDS: GLUCOPHAGE PO SCH ×2 (08:34→16:44)
[2018-07-06] MEDS: ASPIRIN PO SCH (08:34)
[2018-07-06] MEDS: MILK OF MAGNESIA PO SCH ×2 (08:35→21:18)
[2018-07-06] MEDS: SERAX PO SCH ×2 (08:35→21:18)
--- NOTE | 2018-07-06 17:10 | PROGRESS NOTE ---
DATE: 07/06/2018 INTERVAL HISTORY: No overnight events. She had one documented blood pressure of 90/50; however, when I saw the patient at bedside she did not appear in any acute distress. I will await next reading of blood pressure. SUBJECTIVE: The patient is feeling much better than when she came in. She still continues to have some cough; however, she feels it is improving. She denies any more chest pressure. Her shortness of breath is improving. She was able to walk in the hallway with her family member support and she did okay. She would like to be discharged to home rather than rehab. VITAL SIGNS: Currently, temperature off 98.2, pulse 86, respiratory rate 16, blood pressure of 135/65, saturating 95% on 2 L nasal cannula. PHYSICAL EXAMINATION: General: Does not appear in acute distress. HEENT: Oral cavity is moist with slight pharyngeal congestion. She also had right-sided cervical lymphadenopathy. Lungs: Air entry bilaterally equal in suprascapular region with decreased air entry and inspiratory crackles on the left infrascapular region. Cardiovascular: S1, S2 normal. No murmur, rub or gallop. Abdomen: She has abdominal distention with gas. Tympanic to percussion, nontender. Neurologic: Alert, oriented x 3. LABS: Suggestive of resolution of leukocytosis, normocytic anemia, slight thrombocytosis. Resolution of hypokalemia. Normal kidney function. Microbiology: Blood culture no data to date, no growth to date. ASSESSMENT AND PLAN: 1. Acute hypoxic respiratory failure secondary to left lower lobe and lingular pneumonia. Continue oxygen to maintain saturation more than 92%. Continue intravenous Zosyn. Previously, she was on intravenous ceftriaxone and levofloxacin. Continue Mucomyst. 2. Diabetes mellitus type 2. Continue sliding scale insulin, currently in acceptable range. 3. Hypokalemia, now resolved. 4. Hyperlipidemia. Continue home medications of rosuvastatin. 5. History of COPD. Continue albuterol/ipratropium nebulization. 6. History of anxiety or depression. Continue home duloxetine. Continue ezetimibe for hyperlipidemia, levothyroxine for hypothyroidism, metformin for gyf-zkpxkez-earebnkyn diabetes mellitus. 7. Disposition: The patient remains inside the hospital. My plan is to observe her for next 24 to 48 hours on IV Zosyn. If she continues to improve, she would like to go home. I will also assess her oxygen at the time of discharge, hopefully in the next 24 to 48 hours. Plan of care was discussed with her. All of her questions have been answered. cc: Gregg Santana MD
[2018-07-06] MEDS: NEXIUM PO SCH (21:18)
[2018-07-06] MEDS: MYRBETRIQ E.R. PO SCH (21:18)
[2018-07-06] MEDS: ZETIA PO SCH (21:18)
[2018-07-06] MEDS: CRESTOR PO SCH (21:18)
[2018-07-06] MEDS: REQUIP PO SCH (21:19)
[2018-07-07] MEDS: DUONEB (A & A) INH SCH ×6 (03:00→23:20)
[2018-07-07] MEDS: ZOSYN 3.375 GM in NS 50 ML IV SCH ×4 (05:00→22:49)
[2018-07-07] MEDS: LOVENOX SUBQ SCH (05:00)
[2018-07-07] MEDS: SYNTHROID PO SCH (06:29)
[2018-07-07] MEDS: MUCOMYST 20% INH SCH ×2 (08:26→19:28)
[2018-07-07] MEDS: ADVAIR 500/50 DISKUS INH SCH ×2 (08:27→19:29)
[2018-07-07] MEDS: LIORESAL PO SCH ×3 (09:55→20:21)
[2018-07-07] MEDS: SERAX PO SCH ×2 (09:55→20:33)
[2018-07-07] MEDS: GLUCOPHAGE PO SCH ×2 (09:55→17:28)
[2018-07-07] MEDS: TUSSIONEX LIQUID PO SCH ×2 (09:56→20:26)
[2018-07-07] MEDS: CYMBALTA PO SCH (09:56)
[2018-07-07] MEDS: MILK OF MAGNESIA PO SCH ×2 (09:56→20:26)
[2018-07-07] MEDS: ASPIRIN PO SCH (09:56)
[2018-07-07] MEDS: HYGROTON PO SCH (09:56)
[2018-07-07] MEDS: LOTRIMIN 1% CREAM TOP SCH ×2 (09:58→20:22)
[2018-07-07] MEDS: TESSALON PO PRN (17:28)
[2018-07-07] MEDS ORDERED: VANCOMYCIN IV PER PHARMACY MISC SCH (18:15)
[2018-07-07] MEDS: LASIX IV ONE (18:40)
[2018-07-07] MEDS: VANCOMYCIN 1.2 GM in NS 250 ML IV SCH (20:12)
[2018-07-07] MEDS: MYRBETRIQ E.R. PO SCH (20:20)
[2018-07-07] MEDS: CRESTOR PO SCH (20:21)
[2018-07-07] MEDS: ZETIA PO SCH (20:21)
[2018-07-07] MEDS: NEXIUM PO SCH (20:21)
[2018-07-07] MEDS: REQUIP PO SCH (20:21)
--- NOTE | 2018-07-07 21:40 | PROGRESS NOTE ---
DATE: 07/07/2018 Interval history. No acute events overnight. Patient continued to require oxygen as taking her off oxygen decrease her SpO2 level. SUBJECTIVE: Patient continues to have cough and following up she starts feeling short of breath. However she still feels significantly better than her admission. We discussed about adding another antibiotic and possibly keeping her over the weekend. VITAL SIGNS: Temperature 99.2 degrees, pulse 96, blood pressure 125/66, saturating 96% on 2 L nasal cannula. PHYSICAL EXAMINATION: General: Does not appear in any acute distress. Slight pharyngeal congestion. She has right-sided cervical lymphadenopathy. Air entry bilaterally equal in suprascapular region with decreased air entry and inspiratory crackles in left infrascapular region. Cardiovascular: S1, S2 normal. No murmur, rub, or gallop. She has abdominal distention with gas, tympanic to percussion, nontender. Neurologic: Alert, oriented x3. LABS: No new labs today. ASSESSMENT AND PLAN: 1. Acute hypoxic respiratory failure secondary to left lower lobe and lingular pneumonia. Continue oxygenation to maintain saturation more than 92%. Continue intravenous Zosyn, day 1 was 07/05/2017. Start patient on intravenous vancomycin considering persistent cough and shortness of breath. She had previously received intravenous ceftriaxone, levofloxacin. Continue Mucomyst. Follow up with chest x-ray tomorrow and give 1 time dose of Lasix. 2. History of cxt-vwqckqm-zoyiimknu diabetes mellitus type 2. Continue sliding scale insulin. 3. History of hyperlipidemia. Continue home ezetimibe and rosuvastatin. 4. History of chronic obstructive pulmonary disease, continue albuterol ipratropium nebulization. 5. History of anxiety, depression. Continue home duloxetine, oxazepam. 6. History of restless legs syndrome. Continue home ropinirole, others continue home aspirin, baclofen. 7. Disposition. Patient remains inside hospital for need for IV antibiotics. Plan is to likely keep her over the weekend, depending on her course I am anticipating discharge early next week. Plan of care was discussed with patient, all of her questions have been answered. cc: Gregg Santana MD
[2018-07-08] MEDS: DUONEB (A & A) INH SCH ×6 (03:15→23:20)
[2018-07-08] MEDS: LOVENOX SUBQ SCH (05:36)
[2018-07-08] MEDS: ZOSYN 3.375 GM in NS 50 ML IV SCH ×3 (05:36→18:49)
[2018-07-08] MEDS: SYNTHROID PO SCH (06:18)
[2018-07-08 07:15] LABS: BASO# 0.06 X1000 (0.0-0.2); BASO% 0.6 % (0.0-0.8); EOS% 3.9 % (0.0-10.0); HEMOGLOBIN 10.9 g/dL (12.0-16.0); IMM GRAN# 0.41 X1000 (0.0-0.04); LYMPH# 1.83 X1000 (1.2-3.4); LYMPH% 17.9 % (20.5-51.1); MCH 28.4 PG (27-31); MCHC 31.1 g/dL (33-37); MCV 91.1 FL (81-99); MONO# 1.15 X1000 (0.11-0.59); MONO% 11.2 % (1.7-9.3); MPV 7.7 FL (7.4-10.4); NEUT% 62.4 % (42.2-75.2); PLT 545 X1000 (130-400); RBC 3.84 XMIL (4.2-5.4); RDW 12.1 % (11.5-14.5); WBC 10.25 X1000 (4.8-10.8)
[2018-07-08] MEDS: MUCOMYST 20% INH SCH ×2 (07:21→19:20)
[2018-07-08] MEDS: ADVAIR 500/50 DISKUS INH SCH ×2 (07:22→19:20)
[2018-07-08 07:36] LABS: AGAP 13; BUN 13 mg/dL (8-22); CALCIUM 9.2 mg/dL (8.8-10.2); CHLORIDE 91 mmol/L (98-107); COSMO 274; CREATININE 0.7 mg/dL (0.5-0.9); ESTIMATED GFR > 60; GLUCOSE 125 mg/dL (70-104); POTASSIUM 3.5 mmol/L (3.5-5.1); SODIUM 136 mmol/L (136-145); TCO2 32 mmol/L (25-35)
[2018-07-08] MEDS: TUSSIONEX LIQUID PO SCH (10:06)
[2018-07-08] MEDS: MILK OF MAGNESIA PO SCH ×2 (10:06→21:41)
[2018-07-08] MEDS: ASPIRIN PO SCH (10:07)
[2018-07-08] MEDS: LIORESAL PO SCH ×3 (10:07→21:41)
[2018-07-08] MEDS: HYGROTON PO SCH (10:07)
[2018-07-08] MEDS: CYMBALTA PO SCH (10:07)
[2018-07-08] MEDS: LOTRIMIN 1% CREAM TOP SCH ×2 (10:07→21:42)
[2018-07-08] MEDS: GLUCOPHAGE PO SCH ×2 (10:07→18:49)
--- NOTE | 2018-07-08 11:11 | Diag Imaging Result Doc PS360 ---
CHEST-1 VIEW - 07/08/2018 INDICATION: Follow up left lung infiltrate COMPARISON: 07/04/2018 FINDINGS: There has been improvement in the opacification at the left lung base, with some mild residual infiltrate or atelectasis here. The right lung is grossly clear. Heart size is normal. IMPRESSION: Improved aeration of the left lung base. No new abnormality. Electronically signed by Jagjit Pascual 07/08/2018 11:09 AM
[2018-07-08] MEDS: SERAX PO SCH ×2 (12:49→21:40)
[2018-07-08] MEDS: TYLENOL PO PRN (13:03)
[2018-07-08] MEDS ORDERED: LASIX IV ONE (14:39)
[2018-07-08] MEDS: LASIX IV ONE (19:00)
[2018-07-08] MEDS: ZETIA PO SCH (21:40)
[2018-07-08] MEDS: CRESTOR PO SCH (21:40)
[2018-07-08] MEDS: MYRBETRIQ E.R. PO SCH (21:40)
[2018-07-08] MEDS: NEXIUM PO SCH (21:40)
[2018-07-08] MEDS: REQUIP PO SCH (21:41)
[2018-07-09] MEDS: ZOSYN 3.375 GM in NS 50 ML IV SCH ×4 (00:46→18:33)
--- NOTE | 2018-07-09 01:12 | PROGRESS NOTE ---
DATE: 07/08/2018 INTERVAL HISTORY: No overnight acute events. The patient's urine output is not charted properly. The patient was able to walk in the hallway. She states that she is feeling much stronger today. She continues to have cough, but not able to make any expectation. Denies chest pain. VITAL SIGNS: Temperature 97.4 degrees, pulse 95, blood pressure 130/63, saturating 98% on 2 L nasal cannula. PHYSICAL EXAMINATION: General: Does not appear in any acute distress. No pharyngeal congestion. Right-sided cervical lymphadenopathy. Air entry bilaterally equal, equal in suprascapular region, with decreased air entry and inspiratory crackles in the left infrascapular region. However, it is improved from yesterday after Lasix dose. Cardiovascular: S1, S2 normal. No murmur, rub, or gallop. Abdomen: Tympanic to percussion. Nontender. Neurologic: Alert and oriented x3. LABS: Suggestive of no leukocytosis, stable hemoglobin and hematocrit, and platelets in acceptable range. Normal electrolytes, with increasing BUN. Microbiology: No culture to date. IMAGING: Chest x-ray performed today suggests improvement of left lower lobe infiltrate or atelectasis. ASSESSMENT AND PLAN: 1. Acute hypoxic respiratory failure secondary to left lower lobe and lingular pneumonia. Continue oxygenation to maintain saturation more than 92%. I will order a home oxygen evaluation. Continue intravenous Zosyn. Day 1 is July 05. Continue intravenous vancomycin for persistent cough and shortness of breath. Day 1 is July 07. She previously failed ceftriaxone and levofloxacin, considering her persistent cough and shortness of breath. Continue Mucomyst, and give additional dose of Lasix today. 2. History of lcz-pqiilmf-osarcnwrj diabetes mellitus type 2. Continue home metformin. Currently, in acceptable range. 3. History of chronic obstructive pulmonary disease. Continue home albuterol ipratropium nebulization, fluticasone salmeterol inhaler. 4. History of anxiety, depression. Continue home duloxetine, enoxaparin. 5. History of restless legs syndrome. Continue home ropinirole. 6. History of hyperlipidemia. Continue home ezetimibe and rosuvastatin. 7. Disposition. The patient remains inside the hospital for need for intravenous antibiotics. If she continues to do better, I will also follow up with procalcitonin level, and if she continues to better, plan is to discharge her tomorrow or early next week, depending on her course. She may need home physical therapy, but no rehab placement. I will also have her evaluation for home oxygen. Plan of care was discussed with her. All of her questions have been answered. cc: Gregg Santana MD
[2018-07-09] MEDS: DUONEB (A & A) INH SCH ×6 (03:20→22:39)
[2018-07-09] MEDS: SYNTHROID PO SCH (06:08)
[2018-07-09] MEDS: LOVENOX SUBQ SCH (06:08)
[2018-07-09] MEDS: MUCOMYST 20% INH SCH ×2 (07:24→19:18)
[2018-07-09] MEDS: ADVAIR 500/50 DISKUS INH SCH ×2 (07:24→19:22)
[2018-07-09] MEDS: VANCOMYCIN 1.2 GM in NS 250 ML IV SCH (08:02)
[2018-07-09] MEDS: SERAX PO SCH ×2 (09:19→21:09)
[2018-07-09] MEDS: MILK OF MAGNESIA PO SCH ×3 (09:20→21:09)
[2018-07-09] MEDS: ASPIRIN PO SCH (09:20)
[2018-07-09] MEDS: LOTRIMIN 1% CREAM TOP SCH ×2 (09:20→21:09)
[2018-07-09] MEDS: GLUCOPHAGE PO SCH ×2 (09:20→16:55)
[2018-07-09] MEDS: HYGROTON PO SCH (09:21)
[2018-07-09] MEDS: LIORESAL PO SCH ×3 (09:21→21:09)
[2018-07-09] MEDS: CYMBALTA PO SCH (09:21)
--- NOTE | 2018-07-09 14:58 | PROGRESS NOTE ---
DATE: 07/09/2018 SUBJECTIVE: No acute event overnight. The patient states that when she was trying to go to the bathroom she suddenly had started getting short of breath, but she was also under stress so that might have contributed to it. OBJECTIVE: Vital Signs: Temperature of 97.6 degrees, pulse 91 per minute, blood pressure 130/60, saturating 99% on 2 L nasal cannula, I asked for an oxygen saturation check. General: She does not appear in acute distress. HEENT: No pharyngeal congestion. Neck: Right-sided cervical lymphadenopathy . Lungs: Air entry equal in suprascapular region with decreased air entry and inspiratory crackles in the left infrascapular region, improved from yesterday. Cardiovascular: S1, S2 normal. No murmur, rub, or gallop. Abdomen: Tympanic to percussion. Nondistended. Nontender. Neurologic: Alert and oriented x3. LABORATORY DATA: No new labs today. Procalcitonin is pending. ASSESSMENT AND PLAN: 1. Acute hypoxic respiratory failure secondary to left lower lobe and lingular pneumonia. Continue oxygenation to maintain saturations between 88%-92%. Home oxygen evaluation has been ordered. Continue intravenous vancomycin and intravenous Zosyn. Day 1 of Zosyn is 07/05/2018, day 1 of vancomycin is 07/07/2018. She previously failed ceftriaxone and levofloxacin. Considering her symptoms of cough persistent cough and shortness of breath continue Mucomyst. 2. History of pkn-vhtkndi-krbdrxbbe diabetes mellitus type 2. Continue home metformin. Currently in acceptable range. 3. History of chronic obstructive pulmonary disease. Continue home albuterol, ipratropium, fluticasone, salmeterol, and home oxygen evaluation. 4. History of anxiety and depression. Continue home duloxetine and oxazepam. 5. History of restless legs syndrome. Continue home ropinirole. 6. History of hyperlipidemia. Continue on home ezetimibe and rosuvastatin. 7. Disposition. The patient remains inside the hospital for need for intravenous antibiotics. I will follow up with procalcitonin and chest x-ray tomorrow. I am anticipating discharge in the next 24-48 hours. Plan of care was discussed with her. All of her questions have been answered. cc: Gregg Santana MD
[2018-07-09] MEDS: TESSALON PO PRN (16:55)
[2018-07-09] MEDS: TYLENOL PO PRN (20:02)
[2018-07-09] MEDS: ZETIA PO SCH (21:09)
[2018-07-09] MEDS: CRESTOR PO SCH (21:09)
[2018-07-09] MEDS: NEXIUM PO SCH (21:09)
[2018-07-09] MEDS: REQUIP PO SCH (21:09)
[2018-07-09] MEDS: MYRBETRIQ E.R. PO SCH (21:09)
[2018-07-10] MEDS: DUONEB (A & A) INH SCH ×3 (03:09→11:26)
[2018-07-10] MEDS: SYNTHROID PO SCH ×2 (05:47→06:44)
[2018-07-10] MEDS: ZOSYN 3.375 GM in NS 50 ML IV SCH ×3 (05:47→15:28)
[2018-07-10] MEDS: LOVENOX SUBQ SCH (05:48)
[2018-07-10] MEDS: ADVAIR 500/50 DISKUS INH SCH (07:53)
[2018-07-10] MEDS: MUCOMYST 20% INH SCH (07:54)
[2018-07-10 07:59] VITALS: BP 132/65
--- NOTE | 2018-07-10 08:31 | Diag Imaging Result Doc PS360 ---
EXAM: CHEST-2 VIEWS HISTORY: Follow up left lower lung infiltrate TECHNIQUE: Chest two views COMPARISON: 07/08/2018 FINDINGS: Interval decrease in the size of the small left pleural effusion. Interval decrease in the left basilar infiltrate and atelectasis. The right lung remains clear. No cardiomegaly. No vascular distention. IMPRESSION: Mild interval improvement. Electronically signed by Mook Morgan 07/10/2018 8:29 AM
[2018-07-10] MEDS: ASPIRIN PO SCH (09:22)
[2018-07-10] MEDS: CYMBALTA PO SCH (09:22)
[2018-07-10] MEDS: LIORESAL PO SCH ×2 (09:22→15:29)
[2018-07-10] MEDS: SERAX PO SCH (09:22)
[2018-07-10] MEDS: GLUCOPHAGE PO SCH (09:22)
[2018-07-10] MEDS: HYGROTON PO SCH (09:22)
[2018-07-10] MEDS: MILK OF MAGNESIA PO SCH (09:23)
[2018-07-10] MEDS ORDERED: LASIX IV ONE (10:50)
[2018-07-10] MEDS: TESSALON PO PRN (11:09)
[2018-07-10] MEDS: TYLENOL PO PRN (11:09)
[2018-07-10] MEDS: NORCO-10 PO PRN (13:46)
[2018-07-10] MEDS: LOTRIMIN 1% CREAM TOP SCH (13:50)
--- NOTE | 2018-07-11 03:16 | DISCHARGE SUMMARY ---
ADMISSION DATE: 07/01/2018 DISCHARGE DATE: 07/10/2018 DISCHARGE DIAGNOSES: 1. Acute hypoxic respiratory failure. 2. Left lower lobe and lingular pneumonia. 3. Hypokalemia. 4. Mild volume depletion. 5. Hyponatremia and hypochloremia. 6. Normocytic anemia. OTHER DIAGNOSES: 1. History of chronic obstructive pulmonary disease. 2. History of aui-oumbfkt-swxijpgeg diabetes mellitus type 2. 3. History of anxiety and depression. 4. History of restless legs syndrome. 5. History of hyperlipidemia. CONSULTATIONS DURING HOSPITALIZATION: None. DISCHARGE MEDICATIONS: Albuterol sulfate 8.5 g inhaler 2 puffs inhaled q.4 hours p.r.n. for shortness of breath, aspirin 325 mg p.o. daily, baclofen 30 mg t.i.d., chlorthalidone 50 mg daily, duloxetine 60 mg daily, esomeprazole 40 mg at nighttime, ezetimibe 10 mg at nighttime, fluticasone salmeterol 550 inhaler 2 puffs inhaled b.i.d., hydroxyzine 25 mg p.o. t.i.d. p.r.n. for itching, levothyroxine 25 mcg tablet daily, metformin 1000 mg p.o. b.i.d., mirabegron 50 mg extended release 24 hour tablet at nighttime, oxazepam 20 mg p.o. b.i.d., ropinirole 1 mg p.o. at nighttime, rosuvastatin 20 mg at nighttime, tramadol 50 mg tablet 1 tablet p.o. t.i.d. p.r.n., doxycycline 100 mg p.o. b.i.d. twice a day, 4 such tablets. DISCHARGE INSTRUCTIONS: You were admitted for pneumonia of the left lower lung. We treated with intravenous antibiotics and you started improving. Please complete the course of antibiotics. It is important for you to establish care with a lung doctor for your COPD. Discuss with the regular doctor about enlarged lymph nodes on the right side and discuss if you would need any biopsy for that. VITALS: At the time of discharge, temperature 98 degrees, pulse 94, respiratory rate 15, blood pressure 132/65, oxygen saturation of 98% on room air. PHYSICAL EXAMINATION AT THE TIME OF DISCHARGE: General: Does not appear in any acute distress. At baseline, patient is a little restless and has restless legs. No pharyngeal congestion. Right- sided cervical lymphadenopathy which has decreased over the last 48 hours. Respiratory: Air entry bilaterally equal with decreased air entry and inspiratory crackles in the left infrascapular region, which has improved significantly. The patient has been given a dose of Lasix today. Cardiovascular: S1, S2 normal. No murmur, rub, or gallop. Abdomen: Tympanic to percussion. Nondistended, nontender. Neurologic: Alert and oriented x3. LABS: At the time of discharge, WBC 10,000, hemoglobin 10.9, platelet count 545,000. Normal electrolytes with chloride of 91, creatinine of 0.7. Procalcitonin was 0.16. IMAGING DURING HOSPITALIZATION: Chest CT on July 01 had detected lingular and left lower lobe pneumonia. Chest x-ray on July 10 had detected interval decrease in size of small left pleural effusion, interval decrease in left basilar infiltrate and atelectasis. Right lung remains clear. HOSPITAL COURSE SUMMARY: Ms. Piedra is an 78-year-old, lady who presented, who had complaints of cough and a runny nose for about 2 days. She started experiencing chest pain going through her back into the neck since the morning of the presentation, which did not get better and so she decided to come to the hospital. Troponins on arrival were within normal limits and chest x-ray had shown lingular pneumonia, with leukocytosis of 17,000. She was admitted to the medical floor for further evaluation. She was treated with, initially, intravenous antibiotics of levofloxacin and ceftriaxone. However, she continued to have a cough and shortness of breath so, later on, it was changed to intravenous Zosyn and then intravenous vancomycin was added, following which she had started improving significantly. At the time of discharge, she will be discharged on p.o. doxycycline. She was able to ambulate in the hallway without need for oxygen. She was advised to follow up with a school counsellor. 1. Acute hypoxic respiratory failure secondary to left lower lobe and lingular pneumonia requiring oxygen to nasal cannula, had resolved at the time of discharge. She was breathing well on room air. She was also given a dose of Lasix for some left-sided pleural effusion which was improving. 2. For history of zkw-ymtvhsh-nhbqbyphj diabetes mellitus, she was continued on home metformin and it was in acceptable range. 3. For history of COPD, she was continued on albuterol/ipratropium nebulization and fluticasone salmeterol inhaler. 4. She was continued on duloxetine and enoxaparin for history of anxiety and depression. 5. She was continued on ropinirole for restless legs syndrome. 6. She was continued on ezetimibe and rosuvastatin for history of hyperlipidemia. DISPOSITION: The patient did not have any needs at the time of discharge. TIME SPENT: More than 30 minutes were spent in discharging this patient. Plan of care was discussed with the patient's daughter who is her surrogate decision maker at bedside. All of her questions have been answered satisfactorily. cc: Gregg Santana MD
== END 2018-07-10 16:29 | disposition home or self-care (01) | DRG 871 ==
LOC: ED 20:30 → SUATTDRO 07-01 03:30 → 3N 07-01 03:30
PROVIDERS: ATTEND Internal Medicine
CPT/HCPCS: 71010; 71020; 71045; 71046; 71250; 80048; 80053; 81001; 82550; 82553; 83036; 83605; 83880; 84145; 84484; 85025; 85610; 85730; 87040; 87088; 93005; 94640; 94761; 94799; 96374; 97110; 97116; 97162; 97530; 99285; A9270; J0696; J1170; J1650; J1940; J1956; J2405; J2543; J3370; J3480; J7030; J7040; J7050